=== PATIENT | female | born 2000 | race Caucasian/White ===

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

== ENCOUNTER 2021-04-08 12:09 | Emergency (ER) | payer OTHER ==
[2021-04-08 12:47] VITALS: RESP 20; TEMP 98
--- NOTE | 2021-04-08 13:22 | ED ---
General Adult HPI - General Chief complaint: Extremity Injury, Upper Stated complaint: Neck Spasms Time Seen by Provider: 04/08/21 12:47 Source: patient Mode of arrival: ambulatory Limitations: no limitations - History of Present Illness Initial comments: Dictation was produced using [employer] dictation software. please excuse any grammatical, word or spelling errors. Chief Complaint: 20-year-old female presents with left trapezius spasm History of Present Illness: 20-year-old female. At the age of 13 she fell out of a tree and injured her shoulder. Since then she's been having frequent episodes of neck pain, shoulder pain and trapezius pain. Yesterday she began having spasms of her left trapezius. She took one of her prescribed Flexeril with minimal improvement. States that she has had significant workup including MRIs and orthopedic surgery evaluations. Patient denies any numbness distally or paresthesias. During certain movements she has shooting pain that goes down her arm. Mother at the bedside is concerned about radiculopathy. The ROS documented in this emergency department record has been reviewed and co nfirmed by me. Those systems with pertinent positive or negative responses have been documented in the HPI. All other systems are other negative and/or noncontributory. PHYSICAL EXAM: General Impression: Alert and oriented x3, not in acute distress HEENT: Normocephalic atraumatic, extra-ocular movements intact, pupils equal and reactive to light bilaterally, mucous membranes moist, palpatory tenderness to the left trapezius with bogginess of the left paraspinal muscular tissue Cardiovascular: Heart regular rate and rhythm Chest: Able to complete full sentences, no retractions, no tachypnea Musculoskeletal: Pulses present and equal in all extremities, no peripheral edema Left upper extremity: Neurologically intact, normal pulses and cap refill Motor: no focal deficits noted Neurological: CN II-XII grossly intact, no focal motor or sensory deficits noted Skin: Intact with no visualized rashes Psych: Normal affect and mood ED course: 20 Old female presents emergency department for acute on chronic musculoskeletal pain. She suffered a shoulder injury 7 years ago and since then has had frequent episodes of left shoulder and left neck pain. Neurovascularly intact. Cervical spine x-ray and shoulder x-ray are unremarkable for any acute processes. Mother was contemplating a bradycardia patient to the neurosurgeon next for further evaluation. Patient given starter pack of by mouth analgesia. - Related Data Previous Rx's Medication Instructions Recorded Amoxic-Pot Clav 875-125Mg 1 tab PO Q12HR #22 tablet 09/05/18 [Augmentin 875-125] Allergies Allergy/AdvReac Type Severity Reaction Status Date / Time No Known Allergies Allergy Verified 04/08/21 12:46 Review of Systems ROS Statement: Those systems with pertinent positive or pertinent negative responses have been documented in the HPI. ROS Other: All systems not noted in ROS Statement are negative. Past Medical History Past Medical History: No Reported History Additional Past Medical History / Comment(s): fractured ankle at the age of 4 History of Any Multi-Drug Resistant Organisms: None Reported Past Surgical History: Appendectomy Past Anesthesia/Blood Transfusion Reactions: No Reported Reaction Past Psychological History: No Psychological Hx Reported Smoking Status: Never smoker Past Alcohol Use History: None Reported Past Drug Use History: None Reported - Past Family History Mother Family Medical History: Hypertension Father Family Medical History: No Reported History Brother(s) Family Medical History: No Reported History General Exam Limitations: no limitations Course Vital Signs 04/08/21 12:44 Temperature 98 F Pulse Rate 103 H Respiratory 20 Rate Blood Pressure 120/82 O2 Sat by Pulse 99 Oximetry Disposition Clinical Impression: Neck strain Disposition: HOME SELF-CARE Condition: Fair Instructions (If sedation given, give patient instructions): Cervical Sprain (ED) Is patient prescribed a controlled substance at d/c from ED?: No Referrals: Alan Martinez MD [Primary Care Provider] - 1-2 days
--- NOTE | 2021-04-08 14:03 | XR ---
EXAMINATION TYPE: XR cervical spine comp DATE OF EXAM: 04/08/2021 COMPARISON: NONE HISTORY: Pain TECHNIQUE: 5 views FINDINGS: Cervical vertebra have normal alignment. Posterior elements are intact. This spaces are wel l-maintained. Neural foramina are widely patent. Atlantoaxial facet joint is normal. IMPRESSION: Normal cervical spine exam.
--- NOTE | 2021-04-08 14:04 | XR ---
EXAMINATION TYPE: XR shoulder complete LT DATE OF EXAM: 04/08/2021 COMPARISON: NONE HISTORY: Pain TECHNIQUE: 3 views FINDINGS: I see no fracture nor dislocation. Joint spaces are normal. There are no pathologic calcifi cations. IMPRESSION: Negative left shoulder exam.
[2021-04-08] MEDS ORDERED: ACET/COD 300 MG/30 MG STARTER PACK 6 TAB BTL PO STA (14:09)
[2021-04-08 14:25] VITALS: BP 110/60; PULSE 98
== END 2021-04-08 14:25 | disposition home or self-care (01) ==
LOC: EC 12:09
DX: S16.1XXA Strain of muscle, fascia and tendon at neck level, initial encounter (principal); W14.XXXA Fall from tree, initial encounter
CPT/HCPCS: 72050; 99284

== ENCOUNTER → 2021-04-24 | Outpatient (CLI) | payer OTHER ==
[2021-04-24 19:37] LABS: Basophils # (A) 0.05 X 10*3/uL (0.00-0.10); Basophils % (A) 0.6 %; Eosinophils # (A) 0.09 X 10*3/uL (0.04-0.35); Eosinophils % (A) 1.2 %; HCT 47.8 % (37.2-46.3); HGB 15.5 g/dL (12.0-15.0); Immature Grans, Automated 0.3 %; Lymphocytes % (A) 23.3 %; MCH 29.4 pg (27.0-32.0); MCHC 32.4 g/dL (32.0-37.0); MCV 90.7 fL (80.0-97.0); Mean Platelet Volume 9.4 fL (9.5-12.2); Monocytes # (A) 0.48 X 10*3/uL (0.20-1.00); Monocytes % (A) 6.2 %; NRBC Per 100 WBC 0 /100 WBCS (0.0-0.0); Neutrophils % (A) 68.4 %; Platelet Count 346 X 10*3/uL (140-440); RBC 5.27 X 10*6/uL (4.10-5.20); RDW 12.4 % (11.5-14.5); WBC 7.74 X 10*3/uL (4.50-10.00)
[2021-04-24 19:48] LABS: Erythrocyte Sedimentation Rate 8 mm/Hr (0-20)
[2021-04-24 22:20] LABS: ALT 13 U/L (8-44); AST 18 U/L (13-35); African American GFR (CKD) 124.9 (60.0-200.0); BUN/Creat Ratio 10.99 Ratio (12.00-20.00); Blood Urea Nitrogen 8.7 mg/dL (9.0-27.0); Calcium 9.8 mg/dL (8.7-10.3); Carbon Dioxide 20.2 mmol/L (20.0-27.5); Chloride 100 mmol/L (96-109); Creatine Kinase 52 U/L (26-186); Glucose 118 mg/dL (70-110); Non-African American GFR(CKD) 107.8 (60.0-200.0); Potassium 3.9 mmol/L (3.5-5.5); Sodium 137 mmol/L (135-145); Uric Acid 4.2 mg/dL (2.9-7.7)
[2021-04-24 22:31] LABS: C Reactive Protein <0.30 mg/dL (0.00-0.80); Rheumatoid Factor, Qnt <10 IU/mL (0-15)
[2021-04-25 05:03] LABS: Cyclic Citrull Pep IgG Unit <0.5 U/mL; Cyclic Citrullinated Pep IgG NEGATIVE (NEGATIVE)
[2021-04-25 10:01] LABS: Angiotensin-1 Converting Enz. 26 U/L (8-52)
[2021-04-25 10:02] LABS: HLA B27 NEGATIVE
== END | disposition home or self-care (01) ==
LOC: LABWHC1 11:52
PROVIDERS: ATTEND Orthopaedic Surgery
DX: M50.90 Cervical disc disorder, unspecified, unspecified cervical region (principal); M25.512 Pain in left shoulder; M35.7 Hypermobility syndrome; M54.12 Radiculopathy, cervical region
CPT/HCPCS: 36415; 80048; 82164; 82306; 82550; 83520; 84439; 84443; 84450; 84460; 84550; 85025; 85652; 86038; 86140; 86200; 86431; 86812

== ENCOUNTER → 2021-06-05 | Outpatient (CLI) | payer OTHER ==
--- NOTE | 2021-06-05 16:24 | MR ---
EXAMINATION TYPE: MR shoulder LT wo con DATE OF EXAM: 06/05/2021 COMPARISON: Plain film 04/08/2021 HISTORY: Lt shoulder injury x 7 years ago TECHNIQUE: Multiplanar, multisequence imaging of the left shoulder is performed without contrast. FINDINGS: Rotator Cuff: Intact Acromioclavicular Joint: Intact, small amount of fluid is present at the acromioclavicular joint, cor relate for tenderness Glenohumeral Joint: Intact Labrum: Along the labrum there is fluid signal present, triangular focus of low signal on axial image 23 is noted which is thought likely to represent a thickened middle glenohumeral ligament. Biceps Tendon: The long head of biceps is in normal location within bicipital groove. Bone marrow signal: No focal abnormal marrow signal is appreciated. Other: Fluid signal is present along the superior margin of the subscapularis tendon IMPRESSION: Correlate for possible history of AC separation. Fluid present along the superior margin of the subsc apularis tendon could be physiologic but is indeterminate.
== END | disposition home or self-care (01) ==
LOC: RADMRIMAIN 08:04
PROVIDERS: ATTEND Orthopaedic Surgery
DX: R93.7 Abnormal findings on diagnostic imaging of other parts of musculoskeletal system (principal)